=== PATIENT | female | born 1945 | race Caucasian/White ===

== ENCOUNTER → 2017-07-19 | Outpatient (CLI) | payer OTHER ==
--- NOTE | 2017-07-20 12:05 | KCIC ---
DATE: 07/19/2017 EXAM: MAMMO ARTHUR SCREENING BILATERAL HISTORY: Screening COMPARISON: 05/31/2016 This study was interpreted with the benefit of Computerized Aided Detection (CAD). FINDINGS: Breast Density: SCATTERED The breast parenchyma shows scattered fibroglandular densities. Breast parenchyma level B. There has been little change in the appearance of the breasts compared to the previous exam IMPRESSION: Benign findings BI-RADS CATEGORY: 2 BENIGN FINDING(S) RECOMMENDED FOLLOW-UP: 12M 12 MONTH FOLLOW-UP PQRS compliance statement: Patient information was entered into a reminder system with a target due date 07/19/2018 for the next mammogram. Mammography is a sensitive method for finding small breast cancers, but it does not detect them all and is not a substitute for careful clinical examination. A negative mammogram does not negate a clinically suspicious finding and should not result in delay in biopsying a clinically suspicious abnormality. "Our facility is accredited by the [employer] Mammography [employer]."
== END ==
LOC: KCIC MAMMO 15:18
PROVIDERS: ATTEND Family Medicine
DX: Z12.31 Encounter for screening mammogram for malignant neoplasm of breast (principal)
CPT/HCPCS: 77063; G0202; 77067

== ENCOUNTER → 2018-08-15 | Outpatient (CLI) | payer OTHER ==
--- NOTE | 2018-08-15 15:45 | KCIC ---
Bilateral digital screening mammograms with 3-D tomosynthesis: Reason for examination: Routine screening. Comparison is made to previous studies dated 07/19/2017 and 05/31/2016. Bilateral mammograms in CC and oblique projections were obtained with 2-D imaging and 3-D tomosynthesis imaging on a Siemens Inspiration unit and reviewed on the workstation. Interpretation was made with the benefit of CAD. The skin and nipples show no abnormalities. No abnormal axillary lymph nodes are seen. The breast parenchyma shows scattered fatty and fibroglandular density. (Breast density: Category B.) There continues to be a circumscribed nodule anteriorly at the 1:00 position of the right breast which is stable. There are no new dominant masses, suspicious calcifications or architectural distortion. Benign appearing calcifications are present. Impression: No evidence of malignancy. Recommend routine screening. BI-RAD Category 2: Benign. "Our facility is accredited by the [employer]ammography [employer]." This patient's information has been entered into a reminder system for the patient to be notified with the results of her examination and a target date for the next mammogram. Electronically signed by: Janeen Ferreira MD (08/15/2018 3:42 PM) [facility]
== END | disposition home or self-care (01) ==
LOC: KCIC MAMMO 12:59
PROVIDERS: ATTEND Family Medicine
DX: Z12.31 Encounter for screening mammogram for malignant neoplasm of breast (principal)
CPT/HCPCS: 77063; 77067

== ENCOUNTER → 2019-08-20 | Outpatient (CLI) | payer MEDICARE, OTHER ==
--- NOTE | 2019-08-20 18:19 | KCIC ---
Bilateral digital screening mammograms with 3-D tomosynthesis: Reason for examination: Routine screening. Comparison is made to previous studies dated 08/15/2018 and 07/19/2017. Bilateral mammograms in CC and oblique projections were obtained with 2-D imaging and 3-D tomosynthesis imaging on a Siemens Inspiration unit and reviewed on the workstation. Interpretation was made with the benefit of CAD. The skin and nipples show no abnormalities. No abnormal axillary lymph nodes are seen. The breast parenchyma shows scattered fatty and fibroglandular density. (Breast density: Category B.) There continues to be a small circumscribed nodule anteriorly in the 1:00 position of the right breast. There are no new dominant masses, suspicious calcifications or architectural distortion. Benign appearing calcifications are present. Impression: No evidence of malignancy. Recommend routine screening. BI-RAD Category 2: Benign. "Our facility is accredited by the [employer] Mammography [employer]." This patient's information has been entered into a reminder system for the patient to be notified with the results of her examination and a target date for the next mammogram. Electronically signed by: Janeen Ferreira MD (08/20/2019 6:16 PM) [facility]
== END ==
LOC: KCIC MAMMO 14:49
PROVIDERS: ATTEND Family Medicine
DX: Z12.31 Encounter for screening mammogram for malignant neoplasm of breast (principal); N64.89 Other specified disorders of breast; Z80.3 Family history of malignant neoplasm of breast
CPT/HCPCS: 77063; 77067

== ENCOUNTER → 2020-08-22 | Outpatient (CLI) | payer MEDICARE ==
--- NOTE | 2020-08-22 16:45 | KCIC ---
Bilateral digital screening mammograms with 3-D tomosynthesis: Reason for examination: Routine screening. Comparison is made to previous studies dated back to 05/31/2016. Bilateral mammograms in CC and oblique projections were obtained with 2-D imaging and 3-D tomosynthesis imaging on a Siemens Inspiration unit and reviewed on the workstation. Interpretation was made with the benefit of CAD. The skin and nipples show no abnormalities. No abnormal axillary lymph nodes are seen. The breast parenchyma is heterogeneously dense. (Breast density: Category C.) There continues to be a small circumscribed nodule in the right breast centrally approximately 3.8 cm deep to the nipple which are stable. There are new nodules however anteriorly in the left breast best on CC view but probably relocated around the 2:30 to 3:00 position. Further evaluation with ultrasound is recommended. Benign appearing calcifications are present. Impression: Nodular densities anterior laterally in the left breast seen best on CC view but probably located at the 2:00 to 3:00 position. Recommend further evaluation with ultrasound. Your patient's mammogram demonstrates that she has dense breast tissue (breast density category C or D), which could hide abnormalities, and if she has other risk factors for breast cancer that have been identified, she might benefit from supplemental screening tests that may be suggested by you as her ordering physician. Dense breast tissue, in and of itself, is a relatively common condition. Therefore, this information is not provided to cause undue concern, but rather to raise your awareness and to promote discussion with your patient regarding the presence of other risk factors, in addition to dense breast tissue. Your patient's mammography results will be sent to her. BI-RAD Category 0: Incomplete. Needs additional imaging evaluation. "Our facility is accredited by the [employer] Mammography [employer]." This patient's information has been entered into a reminder system for the patient to be notified with the results of her examination and a target date for the next mammogram. Electronically signed by: Janeen Ferreira MD (08/22/2020 2:57 PM) [id number]
== END ==
LOC: KCIC MAMMO 10:07
PROVIDERS: ATTEND Family Medicine
DX: Z12.31 Encounter for screening mammogram for malignant neoplasm of breast (principal); N64.89 Other specified disorders of breast
CPT/HCPCS: 77063; 77067

== ENCOUNTER → 2021-09-01 | Outpatient (CLI) | payer MEDICARE ==
--- NOTE | 2021-09-01 11:59 | KCIC ---
Bilateral digital screening mammograms with 3-D tomosynthesis: Reason for examination: Routine screening. Comparison is made to previous studies dated back to 04/30/2015. Bilateral mammograms in CC and oblique projections were obtained with 2-D imaging and 3-D tomosynthes is imaging on a Siemens Inspiration unit and reviewed on the workstation. Interpretation was made wit h the benefit of CAD. The skin and nipples show no abnormalities. No abnormal axillary lymph nodes are seen. The breast par enchyma is heterogeneously dense. (Breast density: Category C.) There continue to be small nodular pa renchymal densities in the right breast which are stable. There are coarse and scattered benign appea ring calcifications present bilaterally. There is however a cluster of calcifications developing post eriorly at the 2:00 C position of the left breast. Further evaluation with coned compression magnific ation views is recommended. There are no other new dominant masses, suspicious calcifications or arch itectural distortion. Impression: Clustered calcifications developing in the 2:00 C position of the left breast. Recommend further eval uation with coned compression magnification views in CC and true lateral projections. Your patient's mammogram demonstrates that she has dense breast tissue (breast density category C or D), which could hide abnormalities, and if she has other risk factors for breast cancer that have bee n identified, she might benefit from supplemental screening tests that may be suggested by you as her ordering physician. Dense breast tissue, in and of itself, is a relatively common condition. Therefo re, this information is not provided to cause undue concern, but rather to raise your awareness and t o promote discussion with your patient regarding the presence of other risk factors, in addition to d ense breast tissue. Your patient's mammography results will be sent to her. BI-RADS Category 0: Incomplete: Need additional imaging evaluation. "Our facility is accredited by the [employer] Mammography [employer]." This patient's information has been entered into a reminder system for the patient to be notified wit h the results of her examination and a target date for the next mammogram. Electronically signed by: Janeen Ferreira MD (09/01/2021 11:56 AM) [email or web address]
== END ==
LOC: KCIC MAMMO 08:34
PROVIDERS: ATTEND Family Medicine
DX: Z12.31 Encounter for screening mammogram for malignant neoplasm of breast (principal)
CPT/HCPCS: 77063; 77067

== ENCOUNTER → 2021-09-29 | Outpatient (CLI) | payer MEDICARE ==
--- NOTE | 2021-09-29 11:36 | KCIC ---
Left breast diagnostic digital mammograms: Reason for examination: Calcifications on screening mammogram. Comparison is made to previous study dated 09/01/2021. Coned compression magnification views of the left breast were obtained in CC and lateral projections. There is a cluster of calcifications posteriorly at the 2:00 C position of the left breast. DCIS asiya ot be excluded. Further evaluation with stereotactic biopsy is recommended. Due to the posterior posi tion of these calcifications and the patient's kyphosis however, biopsy with upright stereotactic dev ice is recommended. IMPRESSION: Clustered calcifications at the 2:00 C position of the left breast. DCIS cannot be excluded. Recommen d upright stereotactic biopsy. BI-RADS Category 4: Suspicious. I have discussed these findings with the patient and the patient's physician will be notified about t hese findings by the nurse navigator. "Our facility is accredited by the [employer] Mammography [employer]." This patient's information has been entered into a reminder system for the patient to be notified wit h the results of her examination and a target date for the next mammogram. Electronically signed by: Janeen Ferreira MD (09/29/2021 11:34 AM) [email or web address]
== END ==
LOC: KCIC MAMMO 09:36
PROVIDERS: ATTEND Family Medicine
DX: R92.1 Mammographic calcification found on diagnostic imaging of breast (principal); R92.2 Inconclusive mammogram
CPT/HCPCS: 77065

== ENCOUNTER → 2021-10-26 | Outpatient (CLI) | payer MEDICARE ==
[~2021-10-26] MED LIST: LIDOCAINE 1% Multi-Dose 20 ML VIAL. INJ ONE; LIDOCAINE 2%/EPI 1:100,000 20 ML VIAL. INJ ONE
--- NOTE | 2021-10-26 14:35 | RAD ---
EXAM: Stereotactic left breast biopsy; specimen radiograph; post-biopsy clip placement; unilateral po st-biopsy mammogram. HISTORY: 76-year-old female presents for stereotactic guided biopsy of clustered marked calcification s within the posterior 2:00 position of the left breast demonstrate on a mammogram performed 2. TECHNIQUE AND FINDINGS: The procedure and its risks and benefits were discussed with the patient. Ris ks discussed included, but were not limited to, pain, infection, bleeding and need for repeat biopsy. The patient provided verbal and written consent. A timeout was performed. The patient was placed in a prone position of the stereotacic table and the left breast was placed in a lateral medial compression. Images were obtained and the calcifications of concern were localized using stereotaxis. The skin overlying this region was then sterilely prepped and infiltrated with a f ew cc 1% lidocaine for local anesthesia. Deeper soft tissue anesthesia was administered with epinephr ine in 1% lidocaine. A small skin incision was made and the biopsy device was advanced and appropriat e positioning was confirmed with additional images. Subsequently, multiple core biopsy samples were obtained with vacuum assistance. A plain radiograph o f the specimen was obtained, demonstrating inclusion of the calcifications of interest. Then, a post- biospy clip was advanced to the site of biopsy using the same guidance technique. A sterile bandage was placed, and the patient was transferred to the mammography suite for craniocaudal and mediolatera l oblique views. The post-biopsy mammogram demonstrates immediate post-biospy changes and a biopsy clip approximately 1.3 cm lateral to the biopsy bed and residual calcifications. The patient tolerated the procedure wit hout difficulty and was discharged to home in stable condition with post-biospy care instructions. IMPRESSION: Successful stereotactic biospy of clustered calcifications within the posterior 2:00 position of the left breast. An addendum to this report will be submitted when pathology results are available. Electronically signed by: Sayra Perez MD (10/26/2021 2:33 PM) [id number]
--- NOTE | 2021-10-28 17:07 | PATHOLOGY ---
[facility] Accession Number: [id number] . 01 Material submitted: . breast - LEFT BREAST TISSUE. Modifiers: left . 01 Clinical history: . LEFT BREAST CALCIFICATIONS LEFT BREAST STEREOTACTIC BX OBTAINED: 1:50PM FORMALIN: 2:05PM . 02 Diagnosis: Breast tissue, left breast stereotactic biopsy: - Fatty atrophic breast tissue showing rare microcalcification. (JPM:pit; 10/28/2021) P 10/28/2021 1643 Local . 02 Comment: This specimen consists of fatty atrophic breast tissue and is predominantly fatty. There is a rare microcalcification. There is no atypia or evidence of malignancy. (JPM:pit; 10/28/2021) . 02 Electronically signed: . David Mosher MD, Pathologist NPI- [id number] . 01 Gross description: . Received in formalin labeled "Fatoumata Willingham, left breast," is a plastic cassette with multiple needle cores of bright yellow, fibrofatty tissue measuring 2.5 x 2.5 x 0.3 cm in aggregate dimensions. The tissue in the cassette is transferred to cassette A1. Also received within the specimen container are multiple bright yellow fragments of fibrofatty tissue measuring 2.0 x 0.5 x 0.1 cm in aggregate dimensions. The specimen is filtered and entirely submitted in cassette A2. The specimen is collected at 1350 and placed into formalin at 1405 on 10/26/2021. The specimen is removed from formalin 2240 on 10/26/2021. The total formalin fixation time is 8 hours and 35 minutes. ([facility]; 10/26/2021) NRI/NRI 10/26/2021 2113 Local . 02 Pathologist provided ICD-10: N64.89 . 02 CPT . 932587 Specimen Comment: A courtesy copy of this report has been sent to [phone], [phone] Specimen Comment: [id number], Specimen Comment: Report sent to , DR SHEA / DR HAYS Performed at: 01 [facility] [address], [place] [id number] MD Eron Navarro MD Phone: [phone] Performed at: 02 [facility] [address] [place], [place] [id number] MD David Mosher MD Phone: [phone]
== END | disposition home or self-care (01) ==
LOC: MAMMO 12:31
PROVIDERS: ATTEND Surgery
DX: R92.8 Other abnormal and inconclusive findings on diagnostic imaging of breast (principal); Z88.8 Allergy status to other drugs, medicaments and biological substances
CPT/HCPCS: 19081; 77065; J3490